=== PATIENT | male | born 1975 | race Caucasian/White ===

== ENCOUNTER 2020-04-11 20:48 | Emergency (ER) | payer OTHER, SELFPAY ==
--- NOTE | ~2020-04-11 | XR_ITS ---
EXAMINATION: XR chest 2V EXAM DATE: 04/11/2020 22:35 INDICATION: Whole body numbness. Weakness. TECHNIQUE: Frontal and lateral projections of the chest obtained and reviewed. There is no prior julissa dy for comparison. FINDINGS: Moderate hyperinflation. The lungs are clear. There are no pleural effusions. The cardio mediastinal silhouette is within normal limits. There is no pneumothorax suspected. The bones and s oft tissues are unremarkable. IMPRESSION: 1. No acute cardiopulmonary findings. 2. Hyperinflation. Reviewed, dictated and finalized at location G.
--- NOTE | ~2020-04-11 | CT_ITS ---
EXAMINATION: CT brain wo con EXAM DATE: 04/11/2020 23:39 INDICATION: Generalized weakness, intermittent body paresthesia. TECHNIQUE: Spiral CT of the head was performed without contrast. Axial, coronal and sagittal images were reviewed. The dose-length product (DLP) for this examination was 605.33 mGy-cm. The exposure w as tailored according to patient size, and iterative reconstruction (ASIR) was used as additional dos e reduction technique. There is no prior study for comparison. FINDINGS: There is no acute intraparenchymal hemorrhage. No evidence of intraparenchymal brain mass lesion. No evidence of acute infarction. There is no mass effect or midline shift. The ventricles are normal in size. There are no extra-axial collections. There are no acute calvarial fractures. T he orbits are unremarkable. Soft tissue is unremarkable. The visualized sinuses and mastoid air shakira ls are well aerated. IMPRESSION: 1. Normal head CT examination. Reviewed, dictated and finalized at location G.
[2020-04-11 20:49] VITALS: BP 141/99; PULSE 76; RESP 18; TEMP 36.8; O2SAT 100
[2020-04-11 21:30] VITALS: BP 157/80; PULSE 80; RESP 20; O2SAT 95
--- NOTE | 2020-04-11 21:54 | ECG_ITS ---
Measurements Intervals [place] Rate: 70 P: 73 [place]: 145 QRS: 67 QRSD: 104 T: 61 QT: 401 QTc: 435 Interpretive Statements SINUS RHYTHM WITH SINUS ARRHYTHMIA POSSIBLE LEFT ATRIAL ENLARGEMENT INCOMPLETE RIGHT BUNDLE BRANCH BLOCK BASELINE ARTIFACT- I, II BORDERLINE ECG Electronically Signed On 04-12-2020 6:58:30 CDT by Everardo Khan D.O.
[2020-04-11 22:08] LABS: Basophils Percent Auto 0.3 % (0.2-1.2); Eosinophils Absolute Auto 0.1 K/mm3 (0-0.3); Eosinophils Percent Auto 0.8 % (0-4.4); Hematocrit 45.9 % (42.0-52.0); Hemoglobin 15.6 g/dL (14.0-18.0); Immature Granulocyte Absolute 0.04 K/mm3 (0.00-0.031); Immature Granulocyte Percent A 0.4 % (0-0.5); Lymphocytes Absolute Auto 2.24 K/mm3 (0.9-3.2); Lymphocytes Percent Auto 19.7 % (18.3-44.2); Mean Corpuscular Hemoglobin 30.8 pg (26-34); Mean Corpuscular Volume 90.5 fl (80-100); Monocytes Absolute Auto 0.7 K/mm3 (0.1-0.6); Neutrophils Absolute Auto 8.3 K/mm3 (1.3-6.7); Neutrophils Percent Auto 72.8 % (45.5-73.1); Platelet Count Result 206 k/mm3 (150-375); Red Blood Count 5.07 M/mm3 (4.6-6.20); Red Cell Distribution Width 12.5 % (11.5-14.5); White Blood Count 11.4 K/mm3 (4.5-10.0)
[2020-04-11 22:21] LABS: Alanine Aminotransferase 12 U/L (4-50); Albumin Level 4.1 g/dL (3.5-5.1); Alkaline Phosphatase 63 U/L (38-126); Aspartate Amino Transferase 19 U/L (17-59); Bilirubin,Total 1.2 mg/dL (0.2-1.3); Blood Urea Nitrogen 12 mg/dL (9-20); Calcium 8.9 mg/dL (8.4-10.2); Carbon Dioxide 27 mmol/L (22-30); Chloride 104 mmol/L (98-107); Estimated CRCL calculation 90 ml/min; Estimated Glomerular Filt Rate > 60; Glucose 95 mg/dL (75-110); Potassium 3.7 mmol/L (3.4-5.0); Sodium 136 mmol/L (137-145)
[2020-04-11 23:10] VITALS: BP 136/81; PULSE 67; RESP 26; O2SAT 94
--- NOTE | 2020-04-11 23:24 | ED.WEAKNESS ---
HPI - Weakness General Chief complaint: Weakness Stated complaint: DIZZY/BODY NUMB History of Present Illness HPI Narrative: Patient presents with his for increasing weakness and numbness of the extremity. He feels like he cannot walk straight. He feels like he cannot hold his tools at work. He works at [employer]. He feels like his feet and legs and hands, are numb and tingling. His father has neuropathy, and he thinks that he has it too. He smokes 2 packs a day, and wheezes frequently. He does not have a diagnosis of asthma, and does not have an inhaler. Complaint: generalized weakness Onset (ago): month(s) Duration: constant Location: generalized Quality: tingling and numbness Relieving factors: none Exacerbating factors: exertion Associated symptoms: denies other symptoms Related Data Home Medications Medication Instructions Recorded Confirmed No Home Medications 04/11/20 04/11/20 Allergies Allergy/AdvReac Type Severity Reaction Status Date / Time No Known Allergies Allergy Verified 04/11/20 20:57 Review of Systems Review of Systems: Narrative: CONSTITUTIONAL: Denies fever, chills, or sweats. EYES: Denies visual changes, redness, or discharge. ENT: Denies rhinorrhea, congestion, sore throat, or otalgia. CARDIOVASCULAR: Denies chest pain, palpitations, or edema. RESPIRATORY: Denies cough or dyspnea. GASTROINTESTINAL: Denies abdominal pain, nausea, vomiting, or diarrhea. GENITOURINARY: Denies dysuria or hematuria. SKIN: Denies rash or itching. MUSCULOSKELETAL: Denies back pain, joint pain, or myalgia. NEUROLOGIC: Denies headache PSYCHIATRIC: Denies anxiety or depression. All systems reviewed & are unremarkable except as noted in HPI and below PMFSH Social History Social History (Updated 04/11/20 @ 23:27 by Missy Valle MD) Smoking status: Current every day smoker Alcohol intake: never Substance use: never Gender identity (if verbalized by the patient): Male Exam Narrative: Exam Narrative: GENERAL: Well-appearing, well-nourished, and in no acute distress. Very thin. Scabs and abrasions on his hands. HEAD: Normocephalic, atraumatic. EYES: PERRLA and EOMI. ENT: Nares clear, no rhinorrhea or epistaxis. Mucous membranes moist. NECK: Supple. CHEST: Wheezing no respiratory distress. HEART: Regular rate and rhythm. No murmur heard. Normal peripheral pulses. ABDOMEN: Soft, nontender, nondistended, normal active bowel sounds. EXTREMITIES: Normal range of motion. No edema. SKIN: Warm, dry, no rash. NEURO: No focal deficits. Alert and oriented x3. PSYCH: Normal mood and affect. Course Reevaluation(s) Reevaluation #1: Went back in the room to discuss the findings of the medical work-up, and he asked how he supposed to continue working with all this tingling. I read indurated that he needs to see a neurologist, and also to have a primary care physician. I offered to give him 2 days off work, when he got upset, and says that he cannot work anymore. 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 Date: 04/12/20 Time: 01:55 Vital Signs Vital signs: Vital Signs Temperature 98.3 F 04/11/20 20:49 Pulse Rate 76 04/11/20 20:49 Respiratory Rate 18 04/11/20 20:49 Blood Pressure 141/99 H 04/11/20 20:49 Pulse Oximetry 100 04/11/20 20:49 Temperature 98.3 F 04/11/20 20:49 Pulse Rate 67 04/12/20 01:50 Respiratory Rate 16 04/12/20 01:50 Blood Pressure 123/74 04/12/20 01:50 Pulse Oximetry 100 04/12/20 01:50 MDM - Weakness Medical Records Attestation: I reviewed the patient's medical records. Lab Data Attestation: I reviewed the patient's lab results. Result diagrams: 04/11/20 22:03 04/11/20 22:03 Labs: Lab Results 04/11/20 04/11/20 Range/Units 22:03 22:03 WBC 11.4 H (4.5-10.0) K/mm3 RBC 5.07 (4.6-6.20) M/mm3 Hgb 15.6 (14.0-18.0) g/dL Hct 45.9 (42.0-52.0) % MCV 90.5 (80-100) fl MCH 30.8
[2020-04-12 00:05] VITALS: PULSE 64; RESP 16
[2020-04-12] MEDS: ALBUTEROL SULFATE NEB 2.5 MG/0.5 ML INH 5 MG INHALATION (00:10)
[2020-04-12 00:17] VITALS: PULSE 66; RESP 16
[2020-04-12 01:50] VITALS: BP 123/74; PULSE 67; RESP 16; O2SAT 100
== END 2020-04-12 02:03 | disposition home or self-care (01) ==
PROVIDERS: Emergency Provider Emergency Medicine
DX: R06.2 Wheezing (principal); R20.0 Anesthesia of skin; R53.1 Weakness; R94.31 Abnormal electrocardiogram [ECG] [EKG]; F17.210 Nicotine dependence, cigarettes, uncomplicated
CPT/HCPCS: 36415; 70450; 71046; 80053; 85025; 93005; 94640; 99284

== ENCOUNTER 2020-04-19 15:07 | Outpatient (CLI) | payer OTHER, SELFPAY ==
--- NOTE | ~2020-04-19 | XR_ITS ---
EXAMINATION: XR lumbar spine 2-3V EXAM DATE: 04/19/2020 15:41 INDICATION: Toe numbness. Off balance. TECHNIQUE: Lumber spine frontal, lateral, lateral L5-S1 projections for interpretation. There is no prior study for comparison. FINDINGS: There is mild lumbar facet arthropathy. Minimal disc disease. Sacrum, sacroiliac joints, s acral arcuate lines are intact. The vertebral bodies are aligned in the AP dimension. Vertebral body and disc heights are well-maintained. Paraspinal soft tissue is unremarkable. IMPRESSION: Mild lumbar facet arthropathy, minimal disc disease. Reviewed, dictated and finalized at location A.
--- NOTE | ~2020-04-19 | XR_ITS ---
EXAMINATION: XR_CERV2-3V_CR EXAM DATE: 04/19/2020 15:40 INDICATION: Finger numbness. Off balance. Neck pain. TECHNIQUE: Cervical spine frontal, lateral, open-mouth odontoid projections. There is no prior stud y for comparison. FINDINGS: There is no evidence of acute cervical fracture. The odontoid process is intact. Pre-dens space is normal. Prevertebral soft tissue is normal. There are no soft tissue abnormalities identi fied. The vertebral bodies are aligned. Vertebral body and disc heights are well-maintained. Th ere is mild cervical arthropathy. IMPRESSION: 1. Mild cervical arthropathy. Reviewed, dictated and finalized at location A.
[2020-04-19 16:23] LABS: Hematocrit 49.5 % (42.0-52.0); Hemoglobin 16.7 g/dL (14.0-18.0); Mean Corpuscular HGB Conc 33.7 g/dl (32-36); Mean Corpuscular Hemoglobin 30.8 pg (26-34); Mean Corpuscular Volume 91.3 fl (80-100); Mean Platelet Volume 11.3 fl (7.4-10.4); Platelet Count Result 231 k/mm3 (150-375); Red Blood Count 5.42 M/mm3 (4.6-6.20); Red Cell Distribution Width 12.5 % (11.5-14.5); White Blood Count 11.7 K/mm3 (4.5-10.0)
[2020-04-19 16:40] LABS: Cholesterol 176 mg/dL (0-200); HDL Direct 37 mg/dL; Triglycerides 76 mg/dL (<150)
[2020-04-19 16:44] LABS: Rheumatoid Factor < 8.6 IU/ML (<12)
[2020-04-19 16:51] LABS: LDL Cholesterol Direct 125 mg/dL
[2020-04-19 16:55] LABS: Creatinine Urine 157.6 mg/dL
[2020-04-19 16:59] LABS: MALB Creatinine Ratio 92.8 mg/g (0-30); Microalbumin Urine Random 146.2 mg/L (0-16.7)
[2020-04-19 17:07] LABS: Erythrocyte Sedimentation Rate 2 mm/hr (0-20)
[2020-04-19 17:11] LABS: Hemoglobin A1C 5.3 % (<5.7); Prostate Specific Antigen 0.4 ng/mL (< OR = 4.0)
[2020-04-19 17:22] LABS: Free T4 Free Thyroxine 1.04 ng/mL (0.78-2.19)
[2020-04-19 17:46] LABS: Folic Acid 3.4 ng/mL (2.76->20)
[2020-04-22 12:15] LABS: Vitamin B6 3.3 ng/mL (2.1-21.7)
== END 2020-04-19 15:08 | disposition home or self-care (01) ==
PROVIDERS: PCP Emergency Medicine; Visit Provider Emergency Medicine
DX: R20.0 Anesthesia of skin (principal); M54.2 Cervicalgia; M12.88 Other specific arthropathies, not elsewhere classified, other specified site
CPT/HCPCS: 36415; 72040; 72100; 80061; 82043; 82306; 82607; 82746; 83036; 84153; 84207; 84439; 84443; 85027; 85652; 86038; 86430; G0103

== ENCOUNTER 2020-05-09 12:52 | Outpatient (CLI) | payer OTHER, SELFPAY ==
[2020-05-09 13:43] LABS: Hematocrit 46.8 % (42.0-52.0); Hemoglobin 15.9 g/dL (14.0-18.0); Mean Corpuscular Hemoglobin 30.4 pg (26-34); Mean Corpuscular Volume 89.5 fl (80-100); Mean Platelet Volume 11.6 fl (7.4-10.4); Platelet Count Result 172 k/mm3 (150-375); Red Blood Count 5.23 M/mm3 (4.6-6.20); Red Cell Distribution Width 12.3 % (11.5-14.5); White Blood Count 9.5 K/mm3 (4.5-10.0)
== END 2020-05-09 12:53 | disposition home or self-care (01) ==
PROVIDERS: PCP Emergency Medicine; Visit Provider Emergency Medicine
DX: D72.829 Elevated white blood cell count, unspecified (principal)
CPT/HCPCS: 36415; 85027

== ENCOUNTER 2020-05-24 14:51 | Outpatient (CLI) | payer OTHER, SELFPAY ==
--- NOTE | ~2020-05-24 | MR_ITS ---
EXAMINATION: MR cervical spine wo con DATE: 05/24/2020 16:00 INDICATION: Ataxia. TECHNIQUE: Magnetic resonance imaging (MRI) of the cervical spine was performed without intravenous c ontrast. Sequences included sagittal T2-weighted FSE, sagittal T2-weighted FS FSE, sagittal T1-weight ed FSE, axial MERGE, and axial T2-weighted FSE. COMPARISON: Cervical spine radiographs 04/19/2020 FINDINGS: Bone alignment is normal. Vertebral body heights are normal. There is mildly decreased disc height at C4-C5. There is increased T2-weighted signal intensity in the spinal cord bilaterally invo lving the angel matter predominantly at C3-C4 and C4-C5. The following disc levels are specifically di scussed: C2-C3: The disc does not extend beyond the endplate margin. There is no uncovertebral joint osteoarth ritis. There is mild bilateral facet joint osteoarthritis. There is no neural foraminal stenosis. The re is no central canal stenosis. C3-C4: The disc is bulging. There is moderate bilateral uncovertebral joint osteoarthritis. There is mild bilateral facet joint osteoarthritis. There is moderate bilateral neural foraminal stenosis. The re is moderate central canal stenosis with ventral and dorsal indentation of the spinal cord. C4-C5: The disc is bulging. There is severe bilateral uncovertebral joint osteoarthritis. There is no facet joint osteoarthritis. There is moderate bilateral neural foraminal stenosis. There is severe c entral canal stenosis with ventral and dorsal indentation of the spinal cord. C5-C6: There is a left central protrusion. There is no uncovertebral joint osteoarthritis. There is n o facet joint osteoarthritis. There is no neural foraminal stenosis. There is mild central canal sten osis. C6-C7: There is a central protrusion. There is no uncovertebral joint osteoarthritis. There is no fac et joint osteoarthritis. There is no neural foraminal stenosis. There is mild central canal stenosis. C7-T1: The disc does not extend beyond the endplate margin. There is no uncovertebral joint osteoarth ritis. There is mild bilateral facet joint osteoarthritis. There is no neural foraminal stenosis. The re is no central canal stenosis. IMPRESSION: 1. Myelomalacia at C3-C4 and C4-C5. 2. Moderate cervical spondylosis. Reviewed, dictated and finalized at location A.
--- NOTE | ~2020-05-24 | MR_ITS ---
EXAMINATION: MR brain/brain stem wo con DATE: 05/24/2020 16:00 INDICATION: Ataxia. TECHNIQUE: Magnetic resonance imaging (MRI) of the brain and brainstem was performed without intraven ous contrast. Sequences included sagittal and axial T1-weighted FSE, axial diffusion-weighted FS EPI, axial T2*-weighted GRE, axial T2-weighted FLAIR Propeller, and axial T2-weighted Propeller. Apparent diffusion coefficient (ADC) maps were created. COMPARISON: Head CT 04/11/2020 FINDINGS: There is no intracranial hemorrhage, acute infarction, or abnormal intracranial mass lesion . The ventricles are normal in size. The paranasal sinuses are clear. The orbits are normal. There is a trace left mastoid effusion. IMPRESSION: 1. Normal brain. Reviewed, dictated and finalized at location A. IMPRESSION: 1. Normal brain.
== END 2020-05-24 14:52 | disposition home or self-care (01) ==
PROVIDERS: PCP Emergency Medicine; Visit Provider Psychiatry & Neurology Neurology
DX: R27.0 Ataxia, unspecified (principal); M47.892 Other spondylosis, cervical region
CPT/HCPCS: 70551; 72141

== ENCOUNTER → 2020-06-02 13:45 | Outpatient (CLI) | payer OTHER, SELFPAY ==
--- NOTE | ~2020-06-02 | XR_ITS ---
EXAMINATION: XR chest 2V 06/02/2020 14:03 INDICATION: Dyspnea. Abnormal breath sounds. PROCEDURE: 2 view chest COMPARISON: 04/11/2020 FINDINGS: The lungs are clear. The cardiomediastinal silhouette is within normal limits. There are no pleural effusions. There is no pneumothorax suspected. IMPRESSION: 1: NO ACUTE CARDIOPULMONARY DISEASE. Reviewed, dictated and finalized at location B.
== END ==
PROVIDERS: PCP Emergency Medicine; Visit Provider Emergency Medicine
DX: R06.09 Other forms of dyspnea (principal)
CPT/HCPCS: 71046

== ENCOUNTER 2020-06-22 13:55 | Outpatient (CLI) | payer OTHER, SELFPAY ==
--- NOTE | ~2020-06-22 | CT_ITS ---
EXAMINATION: CT chest wo con DATE: 06/22/2020 14:19 INDICATION: Shortness of breath and cough TECHNIQUE: Computed tomography (CT) of the chest was performed without intravenous contrast. The dose -length product (DLP) was 153.17 mGy-cm. Automated exposure control and iterative reconstruction tech nique were employed. COMPARISON: None FINDINGS: The lungs are free of acute opacities. There is no pleural effusion or pneumothorax. No pat hologically enlarged thoracic lymph nodes are identified. The heart size is normal. A 2.2 cm low-atte nuation mass of the left adrenal gland is consistent with an adenoma. There is mild thoracic spondylo sis. IMPRESSION: 1. No CT correlate for the patient's symptoms. 2. Low attenuation left adrenal mass, consistent with an adenoma. Reviewed, dictated and finalized at location B.
== END 2020-06-22 13:56 | disposition home or self-care (01) ==
LOC: ANHIMG 14:02
PROVIDERS: PCP Emergency Medicine; Visit Provider Nurse Practitioner Family
DX: R05 Cough (principal); R06.02 Shortness of breath
CPT/HCPCS: 71250

== ENCOUNTER 2020-06-29 08:33 | Outpatient (CLI) | payer OTHER, SELFPAY ==
--- NOTE | 2020-06-29 15:58 | PCRCNOTE ---
PT REFUSED ABG
--- NOTE | 2020-07-03 17:34 | WPDSIXMINUTE ---
Six Minute Walk Six Minute Walk: DOS: 06/29/2020 REQUESTING: Dr. Lulu [place] FOR TESTING: COPD SIX MINUTE WALK This test was conducted per ATS guidelines on room air. Initial saturation was 94%, pulse was 80. The patient walked for 6 minutes without stopping, saturation stayed 91% to 97%. Pulse ranged from 75-112. Distance walked was 1400 ft/ 426 m. IMPRESSION: This six minute walk shows no desaturation requiring supplemental oxygen. The distance walked is normal for age.
--- NOTE | 2020-07-03 18:34 | WPDPFTINT ---
PFT Interpretation PFT Interpretation: DOS: 06/29/2020 REQUESTING: Dr. Lawson REASON FOR TESTING: COPD PULMONARY FUNCTION TESTS Results are reliable and reproducible. Spirometry: FEV1 is 73%, mildly decreased; FVC 87% normal. Decreased FEV1%. No change with bronchodilator. Lung volumes: TLC 95% normal. RV 106% normal. Increased RV/TLC ratio consistent with air trapping. Increased airway resistance 330%. Diffusion: DLCO is 76%, mildly decreased. Flow volume loop: Unremarkable. IMPRESSION: Mild obstructive ventilatory impairment, mild air trapping, mild diffusion impairment without change following bronchodilator. Lack of response to bronchodilators should not preclude use if clinically indicated. Sherron Lawson MD
== END 2020-06-29 08:34 | disposition home or self-care (01) ==
PROVIDERS: PCP Emergency Medicine; Visit Provider Internal Medicine Critical Care Medicine
DX: J44.9 Chronic obstructive pulmonary disease, unspecified (principal); R06.02 Shortness of breath; R94.2 Abnormal results of pulmonary function studies
CPT/HCPCS: 94060; 94618; 94726; 94729

== ENCOUNTER 2021-05-18 19:55 | Emergency (ER) | payer OTHER, SELFPAY ==
[2021-05-18 20:05] VITALS: BP 149/83; PULSE 86; RESP 18; TEMP 36.7; O2SAT 99
--- NOTE | 2021-05-18 20:12 | ED.DENTAL ---
HPI - Dental/Oral General Chief complaint: Dental/Oral Stated complaint: Tooth Pain Time Seen by Provider: 05/18/21 20:07 Source: patient and RN notes reviewed Mode of arrival: ambulatory Limitations: no limitations History of Present Illness HPI Narrative: Patient presents today complaining of tooth in the right lower gumline that broke last night. States he tasted blood and infection today as well. Reports he has 4 bad teeth in the right lower gumline that he needs pulled. Rates his pain 10/10 has been taking ibuprofen without relief. Denies shortness of breath, fever, difficulty swallowing. States he does have a dentist that he can call for an appointment MD Complaint: tooth pain Related Data Allergies Allergy/AdvReac Type Severity Reaction Status Date / Time No Known Allergies Allergy Verified 05/18/21 20:08 Review of Systems Review of Systems: Narrative: CONSTITUTIONAL: Denies body aches, fever, chills, or sweats. EYES: Denies visual changes, redness, or discharge. ENT: Denies rhinorrhea, congestion, sore throat, or otalgia.+ Dental pain CARDIOVASCULAR: Denies chest pain, palpitations, or edema. RESPIRATORY: Denies cough or dyspnea. GASTROINTESTINAL: Denies abdominal pain, nausea, vomiting, or diarrhea. GENITOURINARY: Denies dysuria or hematuria. SKIN: Denies rash, itching, or wounds. MUSCULOSKELETAL: Denies back pain, joint pain, or myalgia. NEUROLOGIC: Denies headache, numbness, tingling, or weakness. PSYCH: Denies depression or anxiety. 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 Please see nursing chart for further information. There is no relevant family history pertinent to the presenting complaint Exam Narrative: Exam Narrative: GENERAL: Well-appearing, well-nourished, and in no acute distress. HEAD: Normocephalic, atraumatic. EYES: EOMI. No redness or drainage. Conjunctivae normal. ENT: Mucous membranes pink and moist. Throat normal. Uvula midline. Tooth #30 is fractured. Patient has pain along the right lower arch. Gumline is mildly erythematous and edematous. No obvious periapical abscess noted. No sublingual tenderness. No facial swelling noted. NECK: Normal AROM. CHEST: No respiratory distress. Clear to auscultation. HEART: Regular rate and rhythm. No murmur appreciated. Normal peripheral pulses. EXTREMITIES: Normal range of motion. No edema. SKIN: Warm, dry, no rash. Capillary refill normal. Normal skin turgor. NEURO: No focal deficits. Alert and oriented x3. Gait steady. PSYCH: Normal affect. No signs of depression or anxiety. Course Vital Signs Vital signs: Vital Signs Temperature 98.1 F 05/18/21 20:05 Pulse Rate 86 05/18/21 20:05 Respiratory Rate 18 05/18/21 20:05 Blood Pressure 149/83 H 05/18/21 20:05 Pulse Oximetry 99 05/18/21 20:05 Temperature 98.1 F 05/18/21 20:05 Pulse Rate 86 05/18/21 20:05 Respiratory Rate 18 05/18/21 20:05 Blood Pressure 149/83 H 05/18/21
== END 2021-05-18 20:18 | disposition home or self-care (01) ==
PROVIDERS: Emergency Provider Nurse Practitioner; PCP Emergency Medicine
DX: K04.7 Periapical abscess without sinus (principal); F17.210 Nicotine dependence, cigarettes, uncomplicated; J44.9 Chronic obstructive pulmonary disease, unspecified
CPT/HCPCS: 99213; G0463

== ENCOUNTER 2022-01-26 18:31 | Emergency (ER) | payer OTHER, SELFPAY ==
[2022-01-26 18:44] VITALS: BP 128/80; PULSE 95; RESP 16; TEMP 38; O2SAT 97
--- NOTE | 2022-01-26 18:57 | ED.DENTAL ---
HPI - Dental/Oral General Chief complaint: Dental/Oral Stated complaint: tooth pain Time Seen by Provider: 01/26/22 18:48 Source: patient, family and RN notes reviewed Mode of arrival: ambulatory Limitations: no limitations History of Present Illness HPI Narrative: Patient presents today complaining of right lower gumline pain and swelling x2 days. He also reports some mild pain to the upper gumline as well. States he has had difficulties with these teeth in the past and several of them are broken off at the gumline. There is he currently rates his pain 10/26 and states he has taken an entire bottle of ibuprofen today for pain. His girlfriend nods no beside him, that he has in fact not taken this much ibuprofen. MD Complaint: tooth pain Related Data Allergies Allergy/AdvReac Type Severity Reaction Status Date / Time No Known Allergies Allergy Verified 01/26/22 18:50 Review of Systems Review of Systems: CONSTITUTIONAL: Denies body aches, fever, chills, or sweats. EYES: Denies visual changes, redness, or discharge. ENT: Denies rhinorrhea, congestion, sore throat, or otalgia.+ Tooth and gumline pain CARDIOVASCULAR: Denies chest pain, palpitations, or edema. RESPIRATORY: Denies cough or dyspnea. GASTROINTESTINAL: Denies abdominal pain, nausea, vomiting, or diarrhea. GENITOURINARY: Denies dysuria or hematuria. SKIN: Denies rash, itching, or wounds. MUSCULOSKELETAL: Denies back pain, joint pain, or myalgia. NEUROLOGIC: Denies headache, numbness, tingling, or weakness. PSYCH: Denies depression or anxiety. 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 Please see nursing chart for further information. There is no relevant family history pertinent to the presenting complaint Exam Narrative: GENERAL: Well-appearing, well-nourished, and in no acute distress. HEAD: Normocephalic, atraumatic. EYES: EOMI. No redness or drainage. Conjunctivae normal. ENT: Mucous membranes pink and moist. Nares clear. No rhinorrhea. Throat normal. Uvula midline. Patient has gross dental decay. Right lower gumline is erythematous and edematous with no obvious periapical abscesses. No sublingual tenderness. The gumline is tender to palpation. NECK: Normal AROM. CHEST: No respiratory distress. EXTREMITIES: Normal range of motion. No edema. SKIN: Warm, dry, no rash. Capillary refill normal. Normal skin turgor. NEURO: No focal deficits. Alert and oriented x3. Gait steady. PSYCH: Normal affect. No signs of depression or anxiety. Course Course Emergency Course: We will treat patient for significant gum infection/likely abscesses. I have warned him that if he really did take a large amount of ibuprofen, that he need to proceed directly to the ER for evaluation of his kidney function and told him that he could if his kidneys failed due to that much ibuprofen ingestion. Due to the nonverbal cues of the girlfriend, it is unlikely the patient took the amount that h
== END 2022-01-26 19:05 | disposition home or self-care (01) ==
PROVIDERS: Emergency Provider Nurse Practitioner; PCP Emergency Medicine
DX: K04.7 Periapical abscess without sinus (principal); F17.210 Nicotine dependence, cigarettes, uncomplicated; J44.9 Chronic obstructive pulmonary disease, unspecified
CPT/HCPCS: 99213; G0463

== ENCOUNTER 2023-02-15 00:48 | Emergency (ER) | payer OTHER, SELFPAY ==
[2023-02-15 00:53] VITALS: BP 153/75; PULSE 61; RESP 16; TEMP 36.2; O2SAT 98
[2023-02-15] MEDS: HYDROcodone/acetaminophen (*CRX) 5-325 MG TABLET 1 TAB PO (01:24)
[2023-02-15] MEDS: CLINDAMYCIN HCL 150 MG CAP PO (01:24)
--- NOTE | 2023-02-15 01:34 | ED.GENADULT ---
HPI - General Adult General Chief complaint: Dental/Oral Stated complaint: right lower dental pain Time Seen by Provider: 02/15/23 00:56 History of Present Illness HPI narrative: 47-year-old male presented to the emergency department for evaluation of worsening dental pain. Patient reports he has had issues with gingivitis. Patient states a few days ago he began having worsening right-sided dental pain. Patient states he does have follow-up with a dentist scheduled. Patient has been taking ibuprofen for pain control with no significant improvement. 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 HEAD: normocephalic, atraumatic. EYES: PERRLA/EOMI, conjunctivae clear. NOSE: Normal no drainage Mouth: Gingivitis with multiple dental caries. Poor dentition. No visible abscess amenable to drainage THROAT: Pharynx clear, no exudate. NECK: Supple. No adenopathy, no masses. RESPIRATORY: Airway patent, respirations nonlabored. Clear to auscultation bilaterally, no rales, rhonchi, wheezing. SKIN: Warm, dry. Normal Color Course Course Emergency Course: Started on antibiotics in the emergency department. Patient was provided medications and antibiotics for pain control for home. Patient was encouraged of close follow-up with his dentist as scheduled. Vital Signs Vital signs: Vital Signs Temperature 97.1 F L 02/15/23 00:53 Pulse Rate 61 02/15/23 00:53 Respiratory Rate 16 02/15/23 00:53 Blood Pressure 153/75 H 02/15/23 00:53 Pulse Oximetry 98 02/15/23 00:53 Temperature 97.1 F L 02/15/23 00:53 Pulse Rate 61 02/15/23 00:53 Respiratory Rate 16 02/15/23 00:53 Blood Pressure 153/75 H 02/15/23 00:53 Pulse Oximetry 98 02/15/23 00:53 Medical Decision Making Vital Signs Vital Signs: Vital Signs Temperature 97.1 F L 02/15/23 00:53 Pulse Rate 61 02/15/23 00:53 Respiratory Rate 16 02/15/23 00:53 Blood Pressure 153/75 H 02/15/23 00:53 Pulse Oximetry 98 02/15/23 00:53 Temperature 97.1 F L 02/15/23 00:53 Pulse Rate 61 02/15/23 00:53 Respiratory Rate 16 02/15/23 00:53 Blood Pressure 153/75 H 02/15/23 00:53 Pulse Oximetry 98 02/15/23 00:53 Discharge Plan Discharge Clinical Impression: Dental caries, Gingivitis Patient Disposition: Home, Self-Care Condition: Stable Instructions: Antibiotic Form, Mouth Care (ED) Additional Instructions: Antibiotic as directed till completed. Have close follow-up with your dentist. Ibuprofen for pain control. Tramadol as needed for additional pain control. Prescriptions: New clindamycin HCl 150 mg capsule 150 mg PO Q6H 10 Days Qty: 40 0RF tramadol 50 mg tablet 50 mg PO Q6H PRN (Reason: pain) Qty: 14 0RF
== END 2023-02-15 01:50 | disposition home or self-care (01) ==
PROVIDERS: Emergency Provider Emergency Medicine; PCP Emergency Medicine
DX: K02.9 Dental caries, unspecified (principal); K05.10 Chronic gingivitis, plaque induced; J44.9 Chronic obstructive pulmonary disease, unspecified; F17.210 Nicotine dependence, cigarettes, uncomplicated
CPT/HCPCS: 99283; A9270